=== PATIENT | male | born 1965 | race Two or more races ===

== ENCOUNTER 2023-06-23 22:08 | Emergency (ER) | payer OTHER ==
[~2023-06-23] VITALS: Ht 175.3 cm; Wt 84.8 kg
[2023-06-23 22:09] VITALS: TEMP 98
[2023-06-23] MEDS ORDERED: IOHEXOL-350 100 ML VIAL IV ONE (22:28)
[2023-06-23] MEDS ORDERED: IV NS 0.9% 250 ML IV ONE (22:28)
[2023-06-23 22:37] LABS: BASOPHILS # (AUTO) 0.1 K/uL (0.0-0.2); BASOPHILS % (AUTO) 0.9 % (0.0-2.0); EOSINOPHILS # (AUTO) 0.2 K/uL (0.0-0.7); EOSINOPHILS % (AUTO) 2.8 % (0.0-6.0); HEMATOCRIT 44 % (39-51); HEMOGLOBIN 15.4 g/dL (13.5-17.5); LYMPHOCYTES # (AUTO) 3.5 K/uL (0.8-4.8); LYMPHOCYTES % (AUTO) 45.5 % (20.0-44.0); MEAN CORPUSCULAR HEMOGLOBIN 35 PG (26.0-33.0); MEAN CORPUSCULAR HGB CONC 35 g/dl (31.0-36.0); MEAN CORPUSCULAR VOLUME 99 fL (80-96); MONOCYTES # (AUTO) 0.7 K/uL (0.1-1.30); MONOCYTES % (AUTO) 8.5 % (2.0-12.0); NEUTROPHILS # (AUTO) 3.3 K/uL (1.8-8.9); NEUTROPHILS % (AUTO) 42.3 % (43.0-81.0); PLATELET COUNT (AUTO) 289 K/uL (150-450); RED BLOOD CELL COUNT(AUTO) 4.43 MIL/uL (4.5-6.0); RED CELL DISTRIBUTION WIDTH 13.4 % (11.5-15.0); WHITE BLOOD COUNT (AUTO) 7.8 K/uL (4.3-11.0)
[2023-06-23 22:46] LABS: CALCIUM, SERUM 9.3 mg/dL (8.5-10.1); CARBON DIOXIDE 26 mmol/L (21-32); CHLORIDE 107 mmol/L (98-107); CREATININE 1.1 mg/dL (0.6-1.3); GLUCOSE 105 mg/dL (74-106); POTASSIUM 3.8 mmol/L (3.5-5.1); SODIUM SERUM 141 mmol/L (136-145); UREA NITROGEN, BLOOD 12 mg/dL (7-18)
[2023-06-23 22:48] LABS: PARTIAL THROMBOPLASTIN TIME 26.6 SEC (24.3-34.3); PROTHROMBIN TIME 10.5 SECS (9.2-11.1)
[2023-06-23 23:32] VITALS: BP 120/91; O2SAT 96
[2023-06-23] MEDS ORDERED: VALA100026 PO (23:36)
[2023-06-23] MEDS ORDERED: PRED20TA PO (23:36)
[2023-06-23] MEDS ORDERED: predniSONE 20 MG TABLET ONE (23:44)
[2023-06-24] MEDS ORDERED: predniSONE 20 MG TABLET PO ONE
== END 2023-06-24 00:11 | disposition home or self-care (01) ==
LOC: ER 22:14
DX: G51.0 Bell's palsy (principal); E78.5 Hyperlipidemia, unspecified; Z79.899 Other long term (current) drug therapy
CPT/HCPCS: 99291; 70498; 93005; 70496; 85025; 80048; 36415; 84484; 85730; 82962; 70450; J7512; J7050; Q9967